=== PATIENT | female | born 1975 | race African-American/Black ===

== ENCOUNTER 2019-11-21 15:39 | Emergency (ER) | payer OTHER ==
[2019-11-21] MEDS ORDERED: Ketorolac Tromethamine 30 MG/ML VIAL ONE (18:17)
== END 2019-11-21 19:01 | disposition home or self-care (01) ==
LOC: ERS 15:39
DX: S46.911A Strain of unspecified muscle, fascia and tendon at shoulder and upper arm level, right arm, initial encounter (principal); F17.210 Nicotine dependence, cigarettes, uncomplicated; Z71.6 Tobacco abuse counseling
CPT/HCPCS: 96372; 99406; J1885